=== PATIENT | male | born 1960 | race American Indian/Alaskan Native ===

== ENCOUNTER 2016-12-11 20:18 | Emergency (ER) | payer OTHER ==
[2016-12-11 20:19] VITALS: BMI 29.1
[2016-12-11 20:25] VITALS: O2SAT 100
[2016-12-11] MEDS ORDERED: Sodium Chloride 0.9% 1,000 ML IV STA (20:58)
--- NOTE | 2016-12-11 21:33 | ED PDOC ---
HPI: Fever Fever Onset Was: 12/09/16 Additional Comments: John Borrego is a 56 year old male with previous medical history of hepatitis C and hypertension who presents to the emergency department with a complaint of fever associated with chills, mild upper back pain, and prefuse sweating ongoing for 3 days. Denied any chest pain, cough, vomiting, diarrhea, headache, dysuria, rash, sore throat, or general body aches. Of note, patient works in maintenance department for [employer] and stated he was been working outside in the heat for the last 3 days. Past Medical History Reviewed: Historical Data, Nursing Documentation, Vital Signs Vital Signs: Last Vital Signs Temp 99.0 F 12/11/16 22:28 Pulse 100 H 12/11/16 23:31 Resp 16 12/11/16 20:21 BP 144/89 12/11/16 20:21 Pulse Ox 100 12/11/16 23:31 - Medical History PMH: Hepatitis - Surgical History Surgical History: Cholecystectomy - Family History Family History: States: No Known Family Hx - Home Medications Home Medications: Ambulatory Orders Medication Instructions Recorded Aspirin [Aspirin Chewable] 81 mg PO DAILY 09/14/15 Losartan [Cozaar] 50 mg PO DAILY 09/25/15 - Allergies Allergies/Adverse Reactions: Allergies Allergy/AdvReac Type Severity Reaction Status Date / Time No Known Allergies Allergy Verified 09/25/15 16:06 Review of Systems ROS Statement: Except As Marked, All Systems Reviewed And Found Negative Constitutional: Positive for: Fever, Chills, Sweats. Negative for: Other ( bodyaches) ENT: Negative for: Throat Pain Cardiovascular: Negative for: Chest Pain Respiratory: Negative for: Cough Gastrointestinal: Negative for: Vomiting, Diarrhea Genitourinary Male: Negative for: Dysuria Musculoskeletal: Positive for: Back Pain (mild, upper area) Skin: Negative for: Rash Neurological: Negative for: Headache Physical Exam - Reviewed Nursing Documentation Reviewed: Yes Vital Signs Reviewed: Yes - Physical Exam Appears: Positive for: Well, Non-toxic, No Acute Distress Head Exam: Positive for: ATRAUMATIC, NORMAL INSPECTION, NORMOCEPHALIC Skin: Positive for: Normal Color, Warm. Negative for: Rash Eye Exam: Positive for: EOMI, Normal appearance, PERRL ENT: Negative for: Pharyngeal Erythema Cardiovascular/Chest: Positive for: Tachycardia (slight) Respiratory: Positive for: CNT, Normal Breath Sounds Gastrointestinal/Abdominal: Positive for: Normal Exam, Bowel Sounds, Soft. Negative for: Tenderness Extremity: Positive for: Normal ROM. Negative for: Tenderness, Swelling Neurologic/Psych: Positive for: Alert, collection systems consultant II-XII, Oriented - Laboratory Results Result Diagrams: 12/11/16 21:25 12/11/16 21:25 - ECG ECG: Positive for: Interpreted By Me, Viewed By Me ECG Rhythm: Positive for: Normal QRS, Normal ST Segment, Sinus Rhythm. Negative for: ST/T Changes Interpretation Of Abn EKG: LAD Rate: 100 O2 Sat by Pulse Oximetry: 100 (RA) Pulse Ox Interpretation: Normal - Progress Re-evaluation Time: 11:00 Condition: Re-examined, Improved Medical Decision Making Medical Decision Making: Initial Impression: Fever R/O infection of urine, lungs, pneumonia ; Heat- related illness R/O rhabdomyolysis Initial Plan: * Venous blood gas shock panel * EKG * Labs * CPK * Troponin I * CXR * Tylenol 650mg PO * NS 1,000ml IV per 1,000mls/hr * Blood culture * Urine culture * Influenza A B * Urinalysis Scribe Attestation: Documented by Shey Mckinney, acting as a scribe for Sherman Roy MD. Provider Scribe Attestation: All medical record entries made by the Scribe were at my direction and personally dictated by me. I have reviewed the chart and agree that the record accurately reflects my personal performance of the history, physical exam, medical decision making, and the department course for this patient. I have also personally directed, reviewed, and agree with the discharge instructions and disposition. Disposition - Clinical Impression Clinical Impression: Fever, Flu-like symptoms - Patient ED Disposition Is Patient to be Admitted: No Doctor Will See Patient In The: Office Counseled Patient/Family Regarding: Studies Performed, Diagnosis, Need For Followup - Disposition Referrals: [facility] [Outside] Disposition: Routine/Home Disposition Time: 23:29 Condition: GOOD Additional Instructions: Take tylenol or advil for fever. Follow up with your PCP in 2-3 days. Return for worsening. Instructions: Viral Syndrome (ED)
[2016-12-11 21:46] LABS: BASO # 0.1 K/uL (0.0-0.2); BASO % 0.8 % (0.0-2.0); EOS % 0.3 % (0.0-4.0); HEMOGLOBIN 11.9 g/dL (12.0-18.0); LYMPH # 0.6 K/uL (1.0-4.3); LYMPH % 5.1 % (20.0-40.0); MEAN CELL VOLUME 73.7 fl (80.0-94.0); MEAN CORPUSCULAR HEMOGLOBIN 23.4 pg (27.0-31.0); MEAN CORPUSCULAR HGB CONC 31.8 g/dL (33.0-37.0); MEAN PLATELET VOLUME 8.6 fl (7.2-11.7); MONO % 8.8 % (0.0-10.0); NEUT # 9.5 K/uL (1.8-7.0); NRBC % 0.1 % (0.0-0.0); PLATELET COUNT 215 K/uL (130-400); RBC 5.07 Mil/uL (4.40-5.90); WHITE BLOOD COUNT 11.2 K/uL (4.8-10.8)
[2016-12-11 21:49] LABS: VENOUS BLOOD GAS BASE EXCESS 2.6 mmol/L (0.0-2.0); VENOUS BLOOD GAS PCO2 41 mmHg (40-60); VENOUS BLOOD GAS PO2 22 mm/Hg (30-55); VENOUS BLOOD PH 7.43 (7.32-7.43)
[2016-12-11 21:56] LABS: ALB/GLOB RATIO 1.2 (1.0-2.1); ALBUMIN 3.9 g/dL (3.5-5.0); ALT/SGPT 49 U/L (21-72); AST/SGOT 42 U/L (17-59); BLOOD UREA NITROGEN 17 mg/dl (9-20); GFR AFRICAN-AMERICAN > 60; GFR NON-AFRICAN AMERICAN > 60
[2016-12-11 22:33] LABS: EOSINOPHIL 1 % (0-7); LYMPHOCYTE 8 % (20-50); MONOCYTE 5 % (0-10); NEUTROPHIL 86 % (42-75); TOTAL CELLS COUNTED 100
[2016-12-11 22:34] LABS: PLATELET ESTIMATE NORMAL (NORMAL)
[2016-12-11 22:47] VITALS: TEMP 99
[2016-12-11 22:56] LABS: SQUAMOUS EPITHIAL < 1 /hpf (0-5); URINE BACTERIA RARE (<OCC); URINE BILIRUBIN NEGATIVE (NEGATIVE); URINE BLOOD NEGATIVE (NEGATIVE); URINE CLARITY SLIGHTY-CLOUDY (Clear); URINE COLOR YELLOW (YELLOW); URINE GLUCOSE (UA) NEG (Normal); URINE LEUKOCYTE ESTERASE NEG Leu/uL (Negative); URINE NITRATE NEGATIVE (NEGATIVE); URINE PROTEIN 100 mg/dL (NEGATIVE)
[2016-12-11 23:32] VITALS: PULSE 100
[2016-12-11 23:47] VITALS: BP 128/84; RESP 18
--- NOTE | 2016-12-12 08:22 | RAD ---
HISTORY: chest pain COMPARISON: Comparison is made to 09/17/2015 TECHNIQUE: Chest PA and lateral FINDINGS: LUNGS: No significant interval change in the lungs noted since the previous exam. Prominent lung markings are again noted at the mid and lower portion the lungs. PLEURA: No significant pleural effusion identified. No pneumothorax apparent. CARDIOVASCULAR: Normal. OSSEOUS STRUCTURES: No significant abnormalities. VISUALIZED UPPER ABDOMEN: Normal. OTHER FINDINGS: None. IMPRESSION: No significant interval change since the previous study noted.
--- NOTE | 2016-12-12 16:15 | CARD ---
APPROVED REPORT EKG Measurement Heart [id number] <Conclusion> Normal sinus rhythm Left axis deviation Minimal voltage criteria for LVH, may be normal variant Abnormal ECG
== END 2016-12-11 23:50 | disposition home or self-care (01) ==
LOC: H.ER 20:18
DX: B34.9 Viral infection, unspecified (principal); B19.20 Unspecified viral hepatitis C without hepatic coma; I10 Essential (primary) hypertension; Z79.82 Long term (current) use of aspirin

== ENCOUNTER 2017-06-30 07:26 | Emergency (ER) | payer OTHER ==
[2017-06-30 07:32] VITALS: BMI 30.5
[2017-06-30 07:34] VITALS: BP 134/82; PULSE 70; RESP 16; TEMP 97; O2SAT 99
--- NOTE | 2017-06-30 08:04 | ED PDOC ---
HPI: CCC, URI, Sore Throat Time Seen by Provider: 06/30/17 07:45 Chief Complaint (Nursing): Cough, Cold, Congestion Chief Complaint (Provider): Cough, Cold, Congestion History Per: Patient History/Exam Limitations: no limitations Onset/Duration Of Symptoms: Days (x1) Current Symptoms Are (Timing): Still Present Additional Complaint(s): 56 year old male with a past medical history of HTN, who presents to the ED complaining of cough and congestion x3 days. Also confirms sore throat, but is able to swallow. Patient no shortness of breath, diarrhea, or dysuria. No abd pain, vomit. No weaknesss. Chest pain when coughing a lot. No dyspnea. PMD: Non-[facility] Provider Past Medical History Reviewed: Historical Data, Nursing Documentation, Vital Signs Vital Signs: Last Vital Signs Temp 97.0 F L 06/30/17 07:32 Pulse 70 06/30/17 07:32 Resp 16 06/30/17 07:32 BP 134/82 06/30/17 07:32 Pulse Ox 99 06/30/17 08:36 - Medical History PMH: HTN - Family History Family History: States: Unknown Family Hx - Social History Alcohol: None Drugs: Denies - Home Medications Home Medications: Ambulatory Orders Medication Instructions Recorded Aspirin [Aspirin Chewable] 81 mg PO DAILY 09/14/15 Losartan [Cozaar] 50 mg PO DAILY 09/25/15 Benzonatate [Tessalon Perles] 100 mg PO BID PRN 5 Days sgl 06/30/17 Ibuprofen [Motrin] 600 mg PO TID 7 Days tab 06/30/17 - Allergies Allergies/Adverse Reactions: Allergies Allergy/AdvReac Type Severity Reaction Status Date / Time No Known Allergies Allergy Verified 09/25/15 16:06 Review of Systems Constitutional: Negative for: Weakness ENT: Positive for: Nose Congestion, Throat Pain Cardiovascular: Positive for: Chest Pain Respiratory: Positive for: Cough. Negative for: Shortness of Breath Gastrointestinal: Negative for: Vomiting, Diarrhea, Hematemesis Genitourinary Male: Negative for: Dysuria Neurological: Negative for: Weakness, Numbness Physical Exam - Reviewed Nursing Documentation Reviewed: Yes Vital Signs Reviewed: Yes - Physical Exam Appears: Positive for: Non-toxic, No Acute Distress Head Exam: Positive for: ATRAUMATIC, NORMAL INSPECTION, NORMOCEPHALIC Skin: Positive for: Normal Color, Warm, Dry. Negative for: Rash Eye Exam: Positive for: EOMI, Normal appearance, PERRL ENT: Positive for: Nasal Congestion Neck: Positive for: Normal, Painless ROM, Supple Cardiovascular/Chest: Positive for: Regular Rate, Rhythm. Negative for: Murmur Respiratory: Positive for: Normal Breath Sounds. Negative for: Respiratory Distress Gastrointestinal/Abdominal: Positive for: Normal Exam, Bowel Sounds, Soft. Negative for: Tenderness Back: Positive for: Normal Inspection. Negative for: L CVA Tenderness, R CVA Tenderness, Vertebral Tenderness Extremity: Positive for: Normal ROM. Negative for: Pedal Edema, Deformity Neurologic/Psych: Positive for: Alert, Oriented (x3). Negative for: Motor/ Sensory Deficits - ECG ECG: Positive for: Interpreted By Me, Viewed By Me ECG Rhythm: Positive for: Normal QRS, Normal ST Segment, Sinus Rhythm O2 Sat by Pulse Oximetry: 99 (RA) Pulse Ox Interpretation: Normal - Progress ED Course And Treament: 935: Stable. AAOx3. Pain free. Fu with pcp. Medical Decision Making Medical Decision Making: Time: 08:09 Initial Impression: R/o influenza Initial Plan: --EKG --Motrin 600 mg PO --Influenza A B --Reevaluation Scribe Attestation: Documented by Robinson Barraza, acting as a scribe for Epifanio Finney MD. Provider Scribe Attestation: All medical record entries made by the Scribe were at my direction and personally dictated by me. I have reviewed the chart and agree that the record accurately reflects my personal performance of the history, physical exam, medical decision making, and the department course for this patient. I have also personally directed, reviewed, and agree with the discharge instructions and disposition. Disposition - Clinical Impression Clinical Impression: URI (upper respiratory infection) - Patient ED Disposition Is Patient to be Admitted: No Counseled Patient/Family Regarding: Studies Performed, Diagnosis, Need For Followup, Rx Given - Disposition Referrals: [facility] [Outside] - 07/01/17 Disposition: Routine/Home Disposition Time: 09:36 Condition: STABLE Additional Instructions: Return if not better in 3 days. Prescriptions: Benzonatate [Tessalon Perles] 100 mg PO BID PRN 5 Days sgl PRN Reason: Cough Ibuprofen [Motrin] 600 mg PO TID 7 Days tab Instructions: Upper Respiratory Infection (ED) Forms: [employer] (Malay), [facility] ED School/Work Excuse
--- NOTE | 2017-06-30 17:05 | CARD ---
APPROVED REPORT EKG Measurement Heart [id number] <Conclusion> Sinus Rhythm Left axis deviation Abnormal ECG
== END 2017-06-30 10:13 | disposition home or self-care (01) ==
LOC: H.ER 07:26
DX: J06.9 Acute upper respiratory infection, unspecified (principal); I10 Essential (primary) hypertension

== ENCOUNTER 2017-08-29 07:18 | Emergency (ER) | payer SELFPAY ==
[2017-08-29 07:19] VITALS: BMI 30.5
[2017-08-29 07:41] VITALS: PULSE 86; RESP 16; TEMP 98.6; O2SAT 97
--- NOTE | 2017-08-29 08:03 | ED PDOC ---
HPI: Headache Time Seen by Provider: 08/29/17 07:50 Chief Complaint (Nursing): Headache Chief Complaint (Provider): Headache History Per: Patient History/Exam Limitations: no limitations Current Symptoms Are (Timing): Still Present Additional Complaint(s): 56 y/o male with past medical history of hypertension presents to the ED complaining of headache since this morning. Reports that he is not taking his blood pressure medications. Denies chest pain, shortness of breath, focal weakness or any further medical complaints. Past Medical History Reviewed: Historical Data, Nursing Documentation, Vital Signs Vital Signs: Last Vital Signs Temp 98.6 F 08/29/17 07:41 Pulse 86 08/29/17 07:41 Resp 16 08/29/17 07:41 BP 148/95 H 08/29/17 07:41 Pulse Ox 97 08/29/17 07:41 - Medical History PMH: Hepatitis, HTN - Surgical History Surgical History: Cholecystectomy - Family History Family History: States: Unknown Family Hx - Social History Current smoker - smoking cessation education provided: No (former smoker) Alcohol: None Drugs: Denies - Immunization History Hx Tetanus Toxoid Vaccination: No Hx Influenza Vaccination: No - Home Medications Home Medications: Ambulatory Orders Medication Instructions Recorded Aspirin [Aspirin Chewable] 81 mg PO DAILY 09/14/15 Losartan [Cozaar] 50 mg PO DAILY 09/25/15 Benzonatate [Tessalon Perles] 100 mg PO BID PRN 5 Days sgl 06/30/17 Ibuprofen [Motrin] 600 mg PO TID 7 Days tab 06/30/17 Losartan [Cozaar] 50 mg PO DAILY #30 tab 08/29/17 - Allergies Allergies/Adverse Reactions: Allergies Allergy/AdvReac Type Severity Reaction Status Date / Time No Known Allergies Allergy Verified 09/25/15 16:06 Review of Systems ROS Statement: Except As Marked, All Systems Reviewed And Found Negative (As per HPI, otherwise negative) Neurological: Positive for: Headache Physical Exam - Reviewed Nursing Documentation Reviewed: Yes Vital Signs Reviewed: Yes - Physical Exam Appears: Positive for: Non-toxic, No Acute Distress Head Exam: Positive for: ATRAUMATIC, NORMAL INSPECTION, NORMOCEPHALIC Skin: Positive for: Normal Color, Warm, Dry Eye Exam: Positive for: EOMI, Normal appearance, PERRL ENT: Positive for: Normal ENT Inspection Neck: Positive for: Normal, Painless ROM, Supple Cardiovascular/Chest: Positive for: Regular Rate, Rhythm. Negative for: Murmur Respiratory: Positive for: Normal Breath Sounds. Negative for: Respiratory Distress Gastrointestinal/Abdominal: Positive for: Normal Exam, Soft. Negative for: Tenderness Back: Positive for: Normal Inspection Extremity: Positive for: Normal ROM. Negative for: Deformity Neurologic/Psych: Positive for: Alert, Oriented (x3) - ECG O2 Sat by Pulse Oximetry: 97 (RA) Pulse Ox Interpretation: Normal Medical Decision Making Medical Decision Making: Time: 07:56 Initial Impression: Headache Plan: EKG Ibuprofen 600mg PO Scribe Attestation: Documented by Carol Smith acting as a scribe Everett Sorenson MD. Scribe Attestation: All medical record entries made by the Scribe were at my direction and personally dictated by me. I have reviewed the chart and agree that the record accurately reflects my personal performance of the history, physical exam, medical decision making, and the department course for this patient. I have also personally directed, reviewed, and agree with the discharge instructions and disposition. Disposition - Clinical Impression Clinical Impression: Headache, HTN (hypertension) - Patient ED Disposition Is Patient to be Admitted: No Counseled Patient/Family Regarding: Studies Performed, Diagnosis, Need For Followup, Rx Given - Disposition Referrals: [facility] [Outside] Disposition: Routine/Home Disposition Time: 08:53 Condition: FAIR Prescriptions: Losartan [Cozaar] 50 mg PO DAILY #30 tab Instructions: Headache, Adult, High Blood Pressure (DC) Forms: [employer] (Chadian)
[2017-08-29 08:31] VITALS: BP 130/73
--- NOTE | 2017-08-31 13:39 | CARD ---
APPROVED REPORT EKG Measurement Heart [id number] <Conclusion> Normal sinus rhythm with sinus arrhythmia Left axis deviation Abnormal ECG
== END 2017-08-29 09:05 | disposition home or self-care (01) ==
LOC: H.ER 07:18
DX: R51 Headache (principal); I10 Essential (primary) hypertension; Z79.82 Long term (current) use of aspirin; Z87.891 Personal history of nicotine dependence